=== PATIENT | female | born 1960 | race Caucasian/White ===

== ENCOUNTER 2019-02-16 08:32 | Emergency (ER) | payer OTHER ==
[2019-02-16 08:39] VITALS: BP 167/78; PULSE 80; RESP 16; TEMP 97.6
--- NOTE | 2019-02-16 09:15 | ED ---
General Adult HPI - General Chief complaint: Extremity Injury, Lower Stated complaint: lt knee pain Time Seen by Provider: 02/16/19 08:35 Source: patient, RN notes reviewed Mode of arrival: wheelchair Limitations: no limitations - History of Present Illness Initial comments: This a 58-year-old female presents emergency department stating that her left k nee hurts she's noticed some swelling super patellar area. Patient states she got out of her car and twisted her left knee. Patient denies any fall or direct trauma. Patient states it hurts to place any weight on the knee. Patient denies any ankle pain or hip pain. - Related Data Home Medications Medication Instructions Recorded Confirmed Ibuprofen [Motrin Ib] 800 mg PO Q6H PRN 02/16/19 02/16/19 Previous Rx's Medication Instructions Recorded Ketorolac [Toradol] 10 mg PO Q6HR #15 tab 02/16/19 Allergies Allergy/AdvReac Type Severity Reaction Status Date / Time No Known Allergies Allergy Verified 02/16/19 08:44 Review of Systems ROS Statement: Those systems with pertinent positive or pertinent negative responses have been documented in the HPI. ROS Other: All systems not noted in ROS Statement are negative. Past Medical History Past Medical History: No Reported History History of Any Multi-Drug Resistant Organisms: None Reported Past Surgical History: No Surgical Hx Reported Past Psychological History: No Psychological Hx Reported Smoking Status: Never smoker Past Alcohol Use History: Occasional Past Drug Use History: None Reported General Exam - General Exam Comments Initial Comments: GENERAL Patient is well-developed and well-nourished. Patient is in mild distress. EYES Patient's pupils are equal and round. Extraocular motion is intact SKIN Unremarkable NEURO The patient is alert and oriented 3 PYSCH Patient has normal interpersonal interactions. MUSCULOSKELETAL Patient's left knee has an effusion in the lateral suprapatellar region Limitations: no limitations Course Vital Signs 02/16/19 08:36 Temperature 97.6 F Pulse Rate 80 Respiratory 16 Rate Blood Pressure 167/78 O2 Sat by Pulse 96 Oximetry Medical Decision Making - Medical Decision Making After x-ray was ordered patient decided she didn't want an x-ray and just wanted to have a pain shot and follow-up with her physician. Disposition Clinical Impression: Internal derangement of knee Disposition: HOME SELF-CARE Instructions (If sedation given, give patient instructions): Knee Sprain (ED) Prescriptions: Ketorolac [Toradol] 10 mg PO Q6HR #15 tab Is patient prescribed a controlled substance at d/c from ED?: No Referrals: Julia Stiles MD [Primary Care Provider] - 1-2 days Ezequiel Melo MD [STAFF PHYSICIAN] - 1-2 days Time of Disposition: 09:46
[2019-02-16] MEDS ORDERED: KETOROLAC 60 MG/2 ML VIAL IM STA (09:46)
== END 2019-02-16 10:18 | disposition home or self-care (01) ==
LOC: EC 08:32
DX: M23.92 Unspecified internal derangement of left knee (principal); X50.1XXA Overexertion from prolonged static or awkward postures, initial encounter; Y93.89 Activity, other specified
CPT/HCPCS: 96372; 99283